=== PATIENT | male | born 1965 ===

== ENCOUNTER 2018-03-07 17:04 | Emergency (ER) | payer SELFPAY ==
[2018-03-07 18:02] VITALS: BP 147/82; PULSE 66; RESP 18; TEMP 97.4; O2SAT 99
--- NOTE | 2018-03-07 18:18 | C.PDOC ---
History Of Present Illness 52 year old male presents to the ED with complains of sore throat for 4 days with cough and congestion. Also complains of low back pain for 2 weeks, likely from heavy lifting at work he states. He has history of chronic back pain. He denies fever, headache, neck pain, dizziness, chest pain, SOB, numbness, weakness, incontinence. Time Seen by Provider: 03/07/18 18:12 Chief Complaint (Nursing): Back Pain History Per: Patient History/Exam Limitations: no limitations Onset/Duration Of Symptoms: Days (4), Other (two weeks ) Additional History Per: Patient Past Medical History Reviewed: Historical Data, Nursing Documentation, Vital Signs Vital Signs: Last Vital Signs Temp 97.4 F L 03/07/18 17:55 Pulse 66 03/07/18 17:55 Resp 18 03/07/18 17:55 BP 147/82 03/07/18 17:55 Pulse Ox 99 03/07/18 17:55 - Medical History PMH: No Chronic Diseases Surgical History: No Surg Hx Family History: States: Unknown Family Hx - Social History Hx Alcohol Use: No Hx Substance Use: No - Immunization History Hx Tetanus Toxoid Vaccination: No Hx Influenza Vaccination: No Hx Pneumococcal Vaccination: No Review Of Systems Constitutional: Negative for: Fever ENT: Positive for: Nose Congestion, Throat Pain Cardiovascular: Negative for: Chest Pain Respiratory: Positive for: Cough. Negative for: Shortness of Breath Genitourinary: Negative for: Incontinence Musculoskeletal: Positive for: Back Pain. Negative for: Neck Pain Neurological: Negative for: Weakness, Numbness, Headache, Dizziness Physical Exam - Physical Exam Appears: Non-toxic, No Acute Distress Skin: Normal Color, Warm, Dry Head: Atraumatic, Normacephalic Eye(s): bilateral: Normal Inspection Ear(s): Bilateral: Normal Nose: Normal, No Discharge Throat: Erythema (mild ), No Exudate Neck: Supple Chest: Symmetrical, No Deformity, No Tenderness Cardiovascular: Rhythm Regular, No Murmur Respiratory: Normal Breath Sounds, No Rales, No Rhonchi, No Wheezing Back: Paraspinal Tenderness (lumbar ) Extremity: Normal ROM, Capillary Refill (less than 2 seconds ) Neurological/Psych: Oriented x3, Normal Speech, Normal Cognition ED Course And Treatment O2 Sat by Pulse Oximetry: 99 (on RA) Pulse Ox Interpretation: Normal Medical Decision Making Medical Decision Making: Impression: sore throat, cough congestion and low back pain Patient has no fever and in no distress. No clinical signs of strep pharyngitis, pneumonia or dehydration. Based on history and exam no clinical indication for xray. Patient advised on supportive treatment and Rx given. Disposition Counseled Patient/Family Regarding: Diagnosis, Need For Followup, Rx Given - Disposition Referrals: [facility] [Outside] [facility] [Outside] Disposition: HOME/ ROUTINE Disposition Time: 18:18 Condition: GOOD Prescriptions: Benzocaine/Menthol [Cepacol Sore Throat] 1 mason MM Q2 #30 mason Cyclobenzaprine [Cyclobenzaprine HCl] 10 mg PO TID #30 tab Dextromethorphan Polistirex [Delsym] 30 mg PO Q12 PRN #6 oz PRN Reason: Cough Ibuprofen [Motrin] 600 mg PO Q8 #30 tab Instructions: Low Back Pain (DC), Viral Upper Respiratory Infection, Adult (DC) Print Language: MALTESE - POA Present On Arrival: None - Clinical Impression Clinical Impression: Low back pain, Upper respiratory infection - PA / BLOCK FEEDER / Resident Statement MD/DO has reviewed & agrees with the documentation as recorded. - Scribe Statement The provider has reviewed the documentation as recorded by the Scribe (Paulina Pastor) All medical record entries made by the Scribe were at my direction and personally dictated by me. I have reviewed the chart and agree that the record accurately reflects my personal performance of the history, physical exam, medical decision making, and the department course for this patient. I have also personally directed, reviewed, and agree with the discharge instructions and disposition.
== END 2018-03-07 18:50 | disposition home or self-care (01) ==
LOC: C.ER 17:04
DX: M54.5 Low back pain (principal); J06.9 Acute upper respiratory infection, unspecified